=== PATIENT | male | born 1965 | race Caucasian/White ===

== ENCOUNTER 2019-09-29 12:24 | Emergency (ER) | payer OTHER ==
[~2019-09-29] VITALS: Ht 167.6 cm; Wt 99.8 kg
[2019-09-29] MEDS ORDERED: SPIRIVA RESPIMAT4 G1 INH (13:25)
[2019-09-29] MEDS ORDERED: LISINOPRIL30 MG PO (13:26)
[2019-09-29] MEDS ORDERED: HYDROCHLOROTH12.5 MG PO (13:26)
[2019-09-29] MEDS ORDERED: MONTELUKAST SOD10 MG PO (13:26)
[2019-09-29] MEDS ORDERED: SYMBICORT 16010.2 GM INH (13:26)
[2019-09-29] MEDS ORDERED: METHYLPREDNISOLO4 M1 PO (13:26)
[2019-09-29] MEDS ORDERED: QUETIAPINE FUMA50 MG PO (13:27)
[2019-09-29] MEDS ORDERED: AMLODIPINE BESYL5 MG PO (13:27)
[2019-09-29] MEDS ORDERED: ZOFRAN4 MG PO (16:08)
--- NOTE | 2019-09-29 19:33 | EKG ---
[facility] [address] [facility] [place], [place] [address] Signed Sinus tachycardia Otherwise normal ECG No previous ECGs available Confirmed by RIAN DAVIS MD [id number] on 09/29/2019 7:32:51 PM Electronically Signed By: RIAN DAVIS MD 09/29/191932 PATIENT NAME: FABIÁN BURRELL Electrocardiogram DATE OF : 67 PHYSICIAN: RIAN DAVIS MD REPORT #: [id number] REPORT IS CONFIDENTIAL AND NOT TO BE RELEASED WITHOUT AUTHORIZATION
== END 2019-09-29 16:30 | disposition home or self-care (01) ==
LOC: ED 12:24
DX: R07.9 Chest pain, unspecified (principal); R11.10 Vomiting, unspecified; Z79.899 Other long term (current) drug therapy
CPT/HCPCS: 36415; 71045; 80053; 83690; 83735; 84484; 85025; 85379; 85610; 85730; 93005; 93010; 96361; 96374; 96375; 99285-25; J1100; J2060; J2270; J7030; J7121